=== PATIENT | female | born 1950 | race American Indian/Alaskan Native ===

== ENCOUNTER 2018-01-22 07:16 | Day surgery (SDC) | payer MEDICARE, BC ==
[2018-01-22] MEDS ORDERED: HYDROmorphone 0.5 mg/0.5 ml ISec IVP PRN (08:34)
[2018-01-22] MEDS ORDERED: Midazolam 2 MG/2 ML VIAL ONE (09:28)
[2018-01-22] MEDS ORDERED: Propofol 10 mg/ml Inj (20 ML) ONE (09:29)
[2018-01-22] MEDS ORDERED: Dexamethasone 4 mg/1 ml IVP PRN (09:49)
[2018-01-22 10:16] VITALS: O2SAT 100
[2018-01-22 12:00] VITALS: BP 142/63; PULSE 67; RESP 18; TEMP 98
--- NOTE | 2018-01-22 12:25 | PCM.SURG1 ---
Surgeon's Initial Post Op Note - Surgeon's Notes Surgeon: Nicole austin MD Trim Sawyer: none Type of Anesthesia: General LMA Pre-Operative Diagnosis: postmenopasual bleeding Operative Findings: 8-10 week size uteurs, submcosa mass within cavity along left lateral uteirne wall, bilaterl ostia visualized Post-Operative Diagnosis: postmenopausla bleeding submcuosal myoam Operation Performed: Hystersocopc myomecotmy, dilation and currettage Specimen/Specimens Removed: endocervical curretting, endoemtiral currettingd, submcuosal myoma Estimated Blood Loss: EBL {In ML}: 5 Blood Products Given: N/A Drains Used: No Drains Post-Op Condition: Good Date of Surgery/Procedure: 01/22/18 Time of Surgery/Procedure: 10:00
--- NOTE | 2018-01-22 23:51 | OP ---
PROCEDURE DATE: 01/22/2018 PREOPERATIVE DIAGNOSIS: Postmenopausal bleeding. POSTOPERATIVE DIAGNOSES: Postmenopausal bleeding, submucosal myoma. OPERATION PERFORMED: Hysteroscopic myomectomy, dilation and curettage. SURGEON: Nicole Guillen MD MANAGER FEDERAL: None. TYPE OF ANESTHESIA: General. OPERATIVE FINDINGS: An 8 to 10-week sized uterus, submucosal myoma with mass along the left uterine wall. Bilateral ostia visualized. SPECIMEN REMOVED: Endocervical curettings, endometrial curettings, submucosal myoma. ESTIMATED BLOOD LOSS: 5 mL. BLOOD PRODUCTS: None. COMPLICATIONS: None. DESCRIPTION OF PROCEDURE: The patient was taken to the operating room where she was given general anesthesia. Once found to be adequate, she was placed on the operating table in dorsal supine position with legs supported using stirrups. The patient was then prepped and draped in the usual sterile fashion. A time-out confirmed correct patient and correct procedure. Bimanual exam was performed with the above-mentioned findings. A Price retractor was placed in the anterior and posterior fornix of the vagina. The cervix was carefully visualized. A single-tooth tenaculum was placed in the anterior lip of the cervix. Endocervical curettings were obtained with a Kevorkian curette, sent to Pathology on [facility]. The uterus was then sounded to 7 cm. Following this, the uterus was sequentially dilated to allow for introduction of 5-mm hysteroscope under direct visualization using normal saline as the distention media. The mass was then resected with MyoSure device under direct visualization. There were bilateral ostia visualized. There was good hemostasis noted. The MyoSure device and hysteroscope were removed. A gentle curettage was done. Specimen was sent to Pathology, labeled as endometrial curettings. The hysteroscope was then reintroduced. There was good hemostasis noted at the tenaculum puncture site. At the end of the procedure, all needle, sponge, and instrument counts were noted and correct x2. The patient tolerated the procedure well and was transferred to the recovery room in stable condition. Nicole Guillen MD
== END 2018-01-22 12:02 | disposition home or self-care (01) ==
LOC: C.SDS 07:16
PROVIDERS: ATTEND Obstetrics & Gynecology
DX: N95.0 Postmenopausal bleeding (principal); D25.0 Submucous leiomyoma of uterus; N84.0 Polyp of corpus uteri
CPT/HCPCS: 58561; 88305; J2250; J2704; J3010